=== PATIENT | male | born 1955 | race Caucasian/White ===

== ENCOUNTER 2020-10-06 04:12 | Inpatient (IN) | payer MEDICARE ==
[2020-10-06] MEDS ORDERED: MORPHINE SULFATE 2 MG/ML SYRINGE IVP STA (04:37)
[2020-10-06] MEDS ORDERED: SODIUM CHLORIDE 0.9% 500 ML 500 ML IV STA ×2 (04:37→05:47)
[2020-10-06] MEDS ORDERED: ONDANSETRON 4 MG/2 ML VIAL IVP STA (04:37)
[2020-10-06 05:10] LABS: Basophils # (A) 0.1 k/uL (0-0.2); Basophils % (A) 1 %; Eosinophils # (A) 0.2 k/uL (0-0.7); Eosinophils % (A) 2 %; HCT 38.6 % (39.0-53.0); HGB 12.5 gm/dL (13.0-17.5); Lymphocytes # (A) 1.4 k/uL (1.0-4.8); Lymphocytes % (A) 14 %; MCH 30.9 pg (25.0-35.0); MCHC 32.3 g/dL (31.0-37.0); MCV 95.7 fL (80.0-100.0); Mean Platelet Volume 8.5; Monocytes # (A) 0.6 k/uL (0-1.0); Monocytes % (A) 6 %; Neutrophils # (A) 7.5 k/uL (1.3-7.7); Neutrophils % (A) 76 %; Platelet Count 279 k/uL (150-450); RBC 4.04 m/uL (4.30-5.90); RDW 13.3 % (11.5-15.5); WBC 9.8 k/uL (3.8-10.6)
[2020-10-06 05:17] LABS: Calcium 9.8 mg/dL (8.4-10.2); Total Bilirubin 0.6 mg/dL (0.2-1.3); Total Protein 7.5 g/dL (6.3-8.2)
[2020-10-06] MEDS ORDERED: INSULIN REGULAR 100 UNIT/ML VIAL IV STA (05:47)
[2020-10-06] MEDS ORDERED: ALBUTEROL NEBULIZED 2.5 MG/3 ML INHALATION STA (05:47)
[2020-10-06] MEDS ORDERED: DEXTROSE 50% SYRINGE 50 ML IVP STA ×3 (05:47→19:34)
[2020-10-06] MEDS ORDERED: SODIUM BICARB 8.4% 50 ML SYR (1 MEQ/ML) IV STA (05:47)
[2020-10-06] MEDS ORDERED: CALCIUM GLUCONATE 1 GM in SODIUM CHLORIDE 0.9% 100 ML IVPB ONE (06:00)
[2020-10-06 06:09] LABS: Glucose,Whole Blood 59 mg/dL (75-99)
[2020-10-06] MEDS ORDERED: PROCHLORPERAZINE SUPPOSITORY 25 MG SUPP RECTAL PRN (06:37)
[2020-10-06] MEDS ORDERED: NALOXONE 0.4 MG/ML 1 ML VIAL IV PRN (06:37)
[2020-10-06] MEDS ORDERED: MORPHINE SULFATE 4 MG/ML SYRINGE IV PRN (06:37)
[2020-10-06] MEDS ORDERED: ONDANSETRON 4 MG/2 ML VIAL IVP PRN (06:37)
--- NOTE | 2020-10-06 06:39 | CT ---
EXAM: CT Abdomen and Pelvis Without Intravenous Contrast CLINICAL HISTORY: ITS.REASON CT Reason: abdominal pain TECHNIQUE: Axial computed tomography images of the abdomen and pelvis without intravenous contrast. CTDI is 14.87 mGy and DLP is 887.4 mGy-cm. This CT exam was performed using one or more of the following dose reduction techniques: automated exposure control, adjustment of the mA and/or kV according to patient size, and/or use of iterative reconstruction technique. COMPARISON: No relevant prior studies available. FINDINGS: Lung bases: Unremarkable. No mass. No consolidation. Mediastinum: Small hiatal hernia. Possible fundoplication. ABDOMEN: Liver: Unremarkable. Gallbladder and bile ducts: Cholecystectomy. No ductal dilation. Pancreas: Unremarkable. No ductal dilation. Spleen: Unremarkable. No splenomegaly. Adrenals: Small bilateral subcentimeter adrenal nodules, likely adenomas. Kidneys and ureters: Lobular renal contours bilaterally. Left renal cyst. Nonspecific bilateral perinephric stranding greater on the right. No obstructing stones. Stomach and bowel: Unremarkable. No obstruction. No mucosal thickening. PELVIS: Appendix: Normal appendix. Bladder: Unremarkable. No stones. Reproductive: Unremarkable as visualized. ABDOMEN and PELVIS: Intraperitoneal space: Unremarkable. No free air. No significant fluid collection. Bones/joints: Degenerative changes of the spine and bilateral hips. No acute fracture. No dislocation. Soft tissues: Small fat-containing inguinal hernias. Small soft tissue nodules in the superficial abdominal wall subcutaneous tissues may relate to injections. Vasculature: Unremarkable. No abdominal aortic aneurysm. Lymph nodes: Unremarkable. No enlarged lymph nodes. IMPRESSION: 1. Nonspecific bilateral perinephric stranding greater on the right. No hydronephrosis or obstructing calculus. May relate to medical renal disease or infection. 2. No other findings to suggest acute process.
--- NOTE | 2020-10-06 06:41 | ED ---
Nausea/Vomiting/Diarrhea HPI - General Chief complaint: Nausea/Vomiting/Diarrhea Stated complaint: NVD Time Seen by Provider: 10/06/20 04:25 Source: patient, EMS Mode of arrival: EMS Limitations: altered mental status (Appears delirious) - History of Present Illness Initial comments: This patient is a 65-year-old man who is transferred here from the [facility] to be evaluated for intractable nausea vomiting and diarrhea. The patient is reportedly receiving oral vancomycin for Clostridium difficile colitis. On arrival, the patient is not able to give much history due to what appears to be delirium. He does state that he has been vomiting. He does request something to drink. He is currently denying pain. He is not aware of fever or chills. MD complaint: nausea, vomiting, diarrhea Onset/Timin -: days(s) - Related Data Home Medications Medication Instructions Recorded Confirmed Aspirin 81 mg PO DAILY@0800 10/06/20 10/06/20 Cholecalciferol (Vitamin D3) 125 mcg PO DAILY@0810/06/20 10/06/20 [Vitamin D3 (5000 Iu)] Fenofibrate 54 mg PO DAILY@0800 10/06/20 10/06/20 Firvanq 25mg/Ml Solution 25 mg PO QID@00,06,12,18 10/06/20 10/06/20 Lisinopril [Prinivil] 10 mg PO DAILY@0800 10/06/20 10/06/20 Loperamide [Imodium] 2 mg PO Q6H PRN 10/06/20 10/06/20 Mag Hydrox/Aluminum Hyd/Simeth 10 ml PO Q4H PRN 10/06/20 10/06/20 [Mylanta Maximum Strength Liq] Magnesium Hydroxide [Milk of 2,400 mg PO Q24H PRN 10/06/20 10/06/20 Magnesia] Multivitamins, Thera [Multivitamin 1 tab PO DAILY@0800 10/06/20 10/06/20 (formulary)] Oxybutynin Chloride 5 mg PO BID@0800,1600 10/06/20 10/06/20 Pioglitazone [Actos] 45 mg PO DAILY@0800 10/06/20 10/06/20 S.boulardii/B.coagulans/Fos 942 mg PO BID@0800,1600 10/06/20 10/06/20 [Diff-Stat 471 mg Capsule] metFORMIN HCL [Glucophage] 1,000 mg PO BID@0800,1600 10/06/20 10/06/20 Allergies Allergy/AdvReac Type Severity Reaction Status Date / Time bee venom protein (honey bee) Allergy Swelling Verified 10/06/20 08:31 Review of Systems ROS Statement: Those systems with pertinent positive or pertinent negative responses have been documented in the HPI. ROS Other: All systems not noted in ROS Statement are negative. Limitations: ROS unobtainable due to patients medical condition (Appears delirious) Respiratory: Denies: dyspnea Cardiovascular: Denies: chest pain Gastrointestinal: Reports: nausea, vomiting, diarrhea. Denies: abdominal pain Neurological: Denies: headache Past Medical History Past Medical History: Diabetes Mellitus, Hyperlipidemia, Hypertension, Renal Disease History of Any Multi-Drug Resistant Organisms: C-DIFF Past Surgical History: Orthopedic Surgery Past Psychological History: No Psychological Hx Reported Smoking Status: Never smoker Past Alcohol Use History: None Reported Past Drug Use History: None Reported - Past Family History Father Family Medical History: Unable to Obtain Mother Family Medical History: Unable to Obtain General Exam Limitations: no limitations General appearance: alert, obese Head exam: Present: atraumatic, normocephalic Eye exam: Present: normal appearance. Absent: scleral icterus, conjunctival injection ENT exam: Present: mucous membranes dry Respiratory exam: Present: rhonchi. Absent: respiratory distress, wheezes, rales, stridor Cardiovascular Exam: Present: regular rate, normal rhythm, normal heart sounds. Absent: systolic murmur, diastolic murmur, rubs, gallop GI/Abdominal exam: Present: soft. Absent: distended, tenderness, guarding, rebound, rigid, mass, pulsatile mass Extremities exam: Present: normal inspection, normal capillary refill. Absent: pedal edema, calf tenderness Neurological exam: Present: alert. Absent: oriented X3, motor sensory deficit Skin exam: Present: warm, dry, intact, normal color. Absent: rash Course Vital Signs 10/06/20 10/06/20 10/06/20 04:15 05:25 05:52 Temperature 97.8 F Pulse Rate 84 80 Respiratory 16 16 Rate Blood Pressure 104/94 87/54 98/59 O2 Sat by Pulse 99 98 Oximetry 0210/06/20 10/06/20 06:07 06:17 06:30 Temperature Pulse Rate 83 90 92 Respiratory 16 Rate Blood Pressure 100/43 O2 Sat by Pulse 100 Oximetry Medical Decision Making - Medical Decision Making Patient is 65-year-old man sent from [email or web address] for intractable nausea and vomiting. On the exam he does appear to be somewhat dehydrated. The patient's labs reveal what appears to be acute kidney injury, but there is no baseline creatinine for comparison. Potassium is also elevated. The patient is started with fluids and hyperkalemia treatment. - Lab Data Result diagrams: 10/06/20 04:58 10/08/20 16:04 Lab Results 10/06/20 10/06/20 10/06/20 Range/Units 04:58 04:58 04:58 WBC 9.8 (3.8-10.6) k/uL RBC 4.04 L (4.30-5.90) m/uL Hgb 12.5 L (13.0-17.5) gm/dL Hct 38.6 L (39.0-53.0) % MCV 95.7 (80.0-100.0) fL MCH 30.9 (25.0-35.0) pg MCHC 32.3 (31.0-37.0) g/dL RDW 13.3 (11.5-15.5) % Plt Count 279 (150-450) k/uL MPV 8.5 Neutrophils % 76 % Lymphocytes % 14 % Monocytes % 6 % Eosinophils % 2 % Basophils % 1 % Neutrophils # 7.5 (1.3-7.7) k/uL Lymphocytes # 1.4 (1.0-4.8) k/uL Monocytes # 0.6 (0-1.0) k/uL Eosinophils # 0.2 (0-0.7) k/uL Basophils # 0.1 (0-0.2) k/uL Sodium 135 L (137-145) mmol/L Potassium 7.0 H* (3.5-5.1) mmol/L Chloride 103 (98-107) mmol/L Carbon Dioxide 15 L (22-30) mmol/L Anion Gap 17 mmol/L BUN 94 H (9-20) mg/dL Creatinine 8.04 H* (0.66-1.25) mg/dL Est GFR (CKD-EPI)AfAm 7 (>60 ml/min/1.73 sqM) Est GFR (CKD-EPI)NonAf 6 (>60 ml/min/1.73 sqM) Glucose 71 L (74-99) mg/dL POC Glucose (mg/dL) (75-99) mg/dL POC Glu Charging Board Operator ID Plasma Lactic Acid Morgan 1.4 (0.7-2.0) mmol/L Calcium 9.8 (8.4-10.2) mg/dL Total Bilirubin 0.6 (0.2-1.3) mg/dL AST 32 (17-59) U/L ALT 54 H (4-49) U/L Alkaline Phosphatase 46 (38-126) U/L Total Protein 7.5 (6.3-8.2) g/dL Albumin 4.0 (3.5-5.0) g/dL Amylase 80 (30-110) U/L Lipase 282 (23-300) U/L 10/06/20 Range/Units 06:07 WBC (3.8-10.6) k/uL RBC (4.30-5.90) m/uL Hgb (13.0-17.5) gm/dL Hct (39.0-53.0) % MCV (80.0-100.0) fL MCH (25.0-35.0) pg MCHC (31.0-37.0) g/dL RDW (11.5-15.5) % Plt Count (150-450) k/uL MPV Neutrophils % % Lymphocytes % % Monocytes % % Eosinophils % % Basophils % % Neutrophils # (1.3-7.7) k/uL Lymphocytes # (1.0-4.8) k/uL Monocytes # (0-1.0) k/uL Eosinophils # (0-0.7) k/uL Basophils # (0-0.2) k/uL Sodium (137-145) mmol/L Potassium (3.5-5.1) mmol/L Chloride (98-107) mmol/L Carbon Dioxide (22-30) mmol/L Anion Gap mmol/L BUN (9-20) mg/dL Creatinine (0.66-1.25) mg/dL Est GFR (CKD-EPI)AfAm (>60 ml/min/1.73 sqM) Est GFR (CKD-EPI)NonAf (>60 ml/min/1.73 sqM) Glucose (74-99) mg/dL POC Glucose (mg/dL) 59 L (75-99) mg/dL POC Glu Charging Board Operator Chong Carney Plasma Lactic Acid Morgan (0.7-2.0) mmol/L Calcium (8.4-10.2) mg/dL Total Bilirubin (0.2-1.3) mg/dL AST (17-59) U/L ALT (4-49) U/L Alkaline Phosphatase (38-126) U/L Total Protein (6.3-8.2) g/dL Albumin (3.5-5.0) g/dL Amylase (30-110) U/L Lipase (23-300) U/L - EKG Data -: EKG Interpreted by Me EKG shows normal: sinus rhythm, axis (Normal), intervals (Normal), QRS complexes (Normal), ST-T waves (Normal) Rate: normal (Rate 83 bpm) Critical Care Time Critical Care Time: Yes (30 minutes) Disposition Clinical Impression: Hyperkalemia, Acute kidney failure Disposition: ADMITTED IP TO THIS [facility] Condition: Serious
[2020-10-06] MEDS ORDERED: SODIUM CHLORIDE 0.9% 1,000 ML IV SCH (06:45)
[2020-10-06] MEDS ORDERED: SODIUM CHLORIDE 0.9% 1,000 ML IV ONE (07:01)
[2020-10-06] MEDS: VANCOMYCIN 125 MG CAPSULE PO SCH ×4 (10:29→22:38)
--- NOTE | 2020-10-06 10:42 | CONS ---
CONSULTATION REASON FOR CONSULT: Renal failure, hyperkalemia. HISTORY OF PRESENT ILLNESS: Patient is a 65-year-old male who was admitted to the hospital on 10/06/2020 early this morning. He was a transfer from [facility] due to intractable nausea, vomiting and diarrhea. The patient also had mental status changes. He was quite weak. The patient recently had C difficile colitis and was taking oral vancomycin. He was also recently admitted to [facility] and had acute kidney injury. Details are not available. When patient presented here, his potassium was 7.0 and creatinine was 8.03. Prior labs are not available for comparison. The patient has not had any significant urine output since admission. His parker virus PCR was negative. Review of medications: The patient denies any use of nonsteroidal anti-inflammatory agents. Blood pressure has been on the lower side with systolic in the 90s and 87 as well. The patient is currently maintained on IV fluids. He did receive IV treatment for the hyperkalemia. PAST MEDICAL HISTORY: Hypertension, recent C difficile colitis, recent acute kidney injury during hospitalization at [facility], details not available. Patient denies chronic kidney disease. He has type 2 diabetes, hyperlipidemia, osteoarthritis. PAST SURGICAL HISTORY: Orthopedic surgery, details not known. SOCIAL HISTORY: Negative for smoking, drug abuse or alcohol abuse. MEDICATIONS: Medications prior to admission are not listed on the chart at this point. ALLERGIES: None. EXAMINATION: Patient is awake, comfortable. He is not in any acute distress. Blood pressure was 102/56, heart rate 85 per minute, he is afebrile. Examination of the heart S1, S2. Examination of the lungs, decreased breath sounds at bases. Abdomen is soft, nontender. Examination of lower extremities shows no significant edema. PHOTO CHECKER exam shows patient moving all 4 extremities. He is answering simple questions. LAB: Show sodium 135, potassium 7.0, chloride 103, CO2 is 15, BUN 94, serum creatinine 8.04 hemoglobin 12.5 g/dL. Calcium was 9.8, parker virus PCR negative. Abdominal CT was unremarkable with no evidence of hydronephrosis. ASSESSMENT: 1. Acute kidney injury most likely acute tubular necrosis. No evidence of obstruction. Check bladder scan. Send urine for urinalysis. Repeat stat BMP now. If there is no improvement, patient may need dialysis. We will obtain a list of his medications prior to admission. Continue to avoid all nephrotoxic agents. Continue with IV hydration and avoid hypotension. 2. Metabolic acidosis secondary to renal failure, anion gap. If there is no improvement, patient will be started on a bicarb drip. 3. History of recent C difficile colitis, maintained on oral vancomycin. 4. Rule out chronic kidney disease. 5. Type 2 diabetes. 6. Hypertension. PLAN: Check postvoid scan. Check urinalysis. Repeat BMP now. Start IV bicarb. If no improvement in acidosis, patient may need dialysis if there is no improvement in his renal function and hyperkalemia. I will also try to obtain details regarding his admission and his renal function at [facility] during his recent hospitalization there. Thank you for this consultation. We will continue to follow the patient with you during his hospitalization. LOVE / RAE: [id number] /
[2020-10-06 10:54] LABS: Calcium 9.4 mg/dL (8.4-10.2); Potassium 5.9 mmol/L (3.5-5.1)
[2020-10-06 12:02] LABS: Glucose,Whole Blood 66 mg/dL (75-99)
[2020-10-06] MEDS ORDERED: LOPERAMIDE 2 MG CAP PO PRN (12:20)
[2020-10-06 12:29] LABS: Glucose,Whole Blood 80 mg/dL (75-99)
[2020-10-06] MEDS ORDERED: INSULIN REGULAR 100 UNIT/ML VIAL IV ONE ×2 (12:34→19:34)
[2020-10-06] MEDS: INSULIN ASPART (NovoLOG) 100 UNIT/ML VIAL SQ SCH ×3 (12:39→20:21)
[2020-10-06] MEDS: ASPIRIN 81 MG PO SCH (13:36)
[2020-10-06] MEDS: DEXTROSE 5% IN WATER 1,000 ML with SODIUM BICARB (1 MEQ/ML) 150 ML IV SCH (13:36)
[2020-10-06 16:47] LABS: Glucose,Whole Blood 80 mg/dL (75-99)
[2020-10-06] MEDS: OXYBUTYNIN CHLORIDE 5 MG TAB PO SCH (17:11)
[2020-10-06] MEDS: DEXTROSE 5%-0.45% NACL 1,000 ML IV SCH ×2 (17:12→20:23)
[2020-10-06] MEDS ORDERED: VANCOMYCIN PO SCH (18:00)
[2020-10-06 18:30] LABS: Calcium 9.3 mg/dL (8.4-10.2)
[2020-10-06 18:40] LABS: Potassium 6.1 mmol/L (3.5-5.1)
--- NOTE | 2020-10-06 18:53 | P.HPIM ---
History of Present Illness H&P Date: 10/06/20 Chief Complaint: Tired History of presenting complaint: This is a 65-year-old patient, follows with Dr. cain from [place]. Patient is a poor historian and cannot really collect history. As per the nursing patient was found at home on the floor for about 2 days and was taken to [facility]. He was found to be an acute kidney injury and was then admitted to rehab[facility]. Per the EMS report patient was being treated for C. diff. He started antibiotics 3 days prior. Patient had nausea vomiting for past 3 days not able to eat or drink much during that time. Patient feels rather tired and rundown. Patient collect lites were totally off when he presented and also hypoglycemic. Patient states he been so weak that he has not been able to walk. Patient's sister is DP OA Review of systems: GEN.: Weight tired EYES: None HEENT: None NECK: None RESPIRATORY: None CARDIOVASCULAR: None GASTROINTESTINAL: Was being treated for C. diff. Denies any abdominal pain right now GENITOURINARY: None MUSCULOSKELETAL: Some joint pains LYMPHATICS: None HEMATOLOGICAL: None PSYCHIATRY: Forgetful NEUROLOGICAL: None Past medical history to include: Diabetes, hyperlipidemia, hypertension, spinal stenosis, vitamin D deficiency, incontinence, C. diff positive on October 03 Social history: Currently at rehab [facility], no history of smoking or alcohol. Patient's sister is the DP OA Family history: Reviewed, noncontributory to presentation Physical examination: VITAL SIGNS: 97.8, 80, 16, 87/54, 98% room air GENERAL: BMI 27.7, laying in bed, tired appearing. EYES: Pupils equal. Conjunctiva normal. HEENT: External appearance of nose and ears normal, oral cavity grossly normal. NECK: JVD not raised; masses not palpable. HEART: First and second heart sounds are normal; no edema. LUNGS: Respiratory rate normal; clear to auscultation. ABDOMEN: Soft, nontender, liver spleen not palpable, no masses palpable. PSYCH: A bit lethargic but patient is able to answer simple questionsl. NEUROLOGICAL: Cranial nerves grossly intact; no facial asymmetry, power and sensation grossly intact. MUSCULOSKELETAL: Patient is Court overgrowing toenails LYMPHATICS: No lymph nodes palpable in the axilla and neck INVESTIGATIONS, reviewed in the clinical context: Repeat labs-potassium 6.1 bun 95 creatinine 8.73 Serum osmolality 319 White count 9.8 hemoglobin 12.5 platelets 279 potassium 7 bun 94 creatinine 8.04 Blood glucose 71 Coronavirus [PCF]-not detected EKG tracing personally reviewed by me-normal sinus rhythm Computed tomography scan of the abdomen without contrast-nonspecific bilateral perinephric stranding Assessment and plan: -Acute C. diff colitis that was diagnosed 3 days ago. We will continue patient on vancomycin -Acute severe kidney injury, from volume loss cannot rule out a chronic component. Prerenal. Change IV fluids to D5 0.45 -Severe hyperkalemia from renal failure. Patient has received calcium gluconate, insulin, and sodium bicarbonate drip. -Acute metabolic encephalopathy from renal failure -Diabetes mellitus type 2. Uncontrolled with hypoglycemia from poor oral intake Hold off oral hypoglycemic. Follow Accu-Cheks. -Hypotension from volume loss IV fluids -Essential hypertension currently blood pressure running low, hold off any antihypertensives -Metabolic acidosis from renal failure Patient also put on a renal diet. IV fluids. Follow lites closely. Follow with nephrology. DVT prophylaxis. Past Medical History Past Medical History: Dementia, Diabetes Mellitus, Hyperlipidemia, Hypertension, Renal Disease Additional Past Medical History / Comment(s): Spinal stenosis, Vitamin D deficiency, , Incontinence, Obesity, History of Any Multi-Drug Resistant Organisms: C-DIFF Date of last positivie culture/infection: MDRO Source:: Stool Past Surgical History: Orthopedic Surgery Past Anesthesia/Blood Transfusion Reactions: Unable to Obtain Past Psychological History: No Psychological Hx Reported Smoking Status: Never smoker Past Alcohol Use History: None Reported Past Drug Use History: None Reported - Past Family History Father Family Medical History: Unable to Obtain Mother Family Medical History: Unable to Obtain Medications and Allergies Home Medications Medication Instructions Recorded Confirmed Type Aspirin 81 mg PO DAILY@0800 10/06/20 10/06/20 History Cholecalciferol (Vitamin D3) 125 mcg PO DAILY@0800 10/06/20 10/06/20 History [Vitamin D3 (5000 Iu)] Fenofibrate 54 mg PO DAILY@0800 10/06/20 10/06/20 History Firvanq 25mg/Ml Solution 25 mg PO QID@00,06,12,18 10/06/20 10/06/20 History Lisinopril [Prinivil] 10 mg PO DAILY@0800 10/06/20 10/06/20 History Loperamide [Imodium] 2 mg PO Q6H PRN 10/06/20 10/06/20 History Mag Hydrox/Aluminum Hyd/Simeth 10 ml PO Q4H PRN 10/06/20 10/06/20 History [Mylanta Maximum Strength Liq] Magnesium Hydroxide [Milk of 2,400 mg PO Q24H PRN 10/06/20 10/06/20 History Magnesia] Multivitamins, Thera [Multivitamin 1 tab PO DAILY@0800 10/06/20 10/06/20 History (formulary)] Oxybutynin Chloride 5 mg PO BID@0800,1600 10/06/20 10/06/20 History Pioglitazone [Actos] 45 mg PO DAILY@0800 10/06/20 10/06/20 History S.boulardii/B.coagulans/Fos 942 mg PO BID@0800,1600 10/06/20 10/06/20 History [Diff-Stat 471 mg Capsule] metFORMIN HCL [Glucophage] 1,000 mg PO BID@0800,1600 10/06/20 10/06/20 History Allergies Allergy/AdvReac Type Severity Reaction Status Date / Time bee venom protein (honey bee) Allergy Swelling Verified 10/06/20 08:31 Physical Exam Vitals: Vital Signs Temp Pulse Pulse Resp BP BP Pulse Ox 10/06/20 08:00 98.5 F 85 18 102/56 97 10/06/20 06:30 92 16 100/43 100 10/06/20 06:17 90 10/06/20 06:07 83 10/06/20 05:52 98/59 10/06/20 05:25 80 16 87/54 98 10/06/20 04:15 97.8 F 84 16 104/94 99 Intake and Output 10/05/20 10/06/20 10/06/20 22:59 06:59 14:59 Other: Weight 98.883 kg 92.545 kg Results CBC & Chem 7: 10/06/20 04:58 10/06/20 17:59 Labs: Abnormal Lab Results - Last 24 Hours (Table) 10/06/20 10/06/20 10/06/20 Range/Units 04:58 04:58 06:07 RBC 4.04 L (4.30-5.90) m/uL Hgb 12.5 L (13.0-17.5) gm/dL Hct 38.6 L (39.0-53.0) % Sodium 135 L (137-145) mmol/L Potassium 7.0 H* (3.5-5.1) mmol/L Carbon Dioxide 15 L (22-30) mmol/L BUN 94 H (9-20) mg/dL Creatinine 8.04 H* (0.66-1.25) mg/dL Glucose 71 L (74-99) mg/dL POC Glucose (mg/dL) 59 L (75-99) mg/dL ALT 54 H (4-49) U/L
[2020-10-06 20:17] LABS: Glucose,Whole Blood 104 mg/dL (75-99)
[2020-10-06 20:44] LABS: Appearance,Urine Clear (Clear); Bilirubin,Urine Negative (Negative); Blood,Urine Trace (Negative); Color,Urine Light Yellow; Glucose,Urine (UA) 1+ (Negative); Hyaline Casts,Urine 6 /lpf (0-2); Ketones,Urine Negative (Negative); Leukocyte Esterase,Urine Trace (Negative); Mucus,Urine Rare /hpf; Nitrite,Urine Negative (Negative); Protein,Urine 1+ (Negative); RBC,Urine <1 /hpf (0-5); Specific Gravity,Urine 1.008 (1.001-1.035); Urobilinogen,Urine <2.0 mg/dL (<2.0); WBC,Urine 4 /hpf (0-5)
[2020-10-06 20:48] LABS: Creatinine,Urine Random 51.5 mg/dL
[2020-10-07 02:05] LABS: Glucose,Whole Blood 143 mg/dL (75-99)
[2020-10-07] MEDS: DEXTROSE 5%-0.45% NACL 1,000 ML IV SCH ×4 (03:12→17:24)
[2020-10-07 05:49] LABS: Glucose,Whole Blood 144 mg/dL (75-99)
[2020-10-07] MEDS: INSULIN ASPART (NovoLOG) 100 UNIT/ML VIAL SQ SCH ×4 (06:24→23:22)
[2020-10-07] MEDS: DEXTROSE 5% IN WATER 1,000 ML with SODIUM BICARB (1 MEQ/ML) 150 ML IV SCH (06:40)
[2020-10-07] MEDS ORDERED: PIOGLITAZONE 45 MG TAB PO SCH (08:00)
[2020-10-07 08:48] LABS: INR 1.1 (<1.2); Prothrombin Time 11.7 sec (9.0-12.0)
[2020-10-07 08:49] LABS: Partial Thromboplastin Time 21.3 sec (22.0-30.0)
--- NOTE | 2020-10-07 10:09 | P.GSHP ---
History of Present Illness 65-year-old gentleman patient has been admitted with high potassium of 7 history of acute kidney tape. Patient also had a history of see deficit in the past treated with antibiotic I was consulted for placement of the dialysis catheter Neck examination neck is supple no bruit appreciated Chest is clear first and second sound present good and both lungs Abdomen soft nontender Vascular examination femorals are 1+ bilateral plan is placement of a dialysis catheter risk and complication discussed Past Medical History Past Medical History: Dementia, Diabetes Mellitus, Hyperlipidemia, Hypertension, Renal Disease Additional Past Medical History / Comment(s): Spinal stenosis, Vitamin D deficiency, , Incontinence, Obesity, History of Any Multi-Drug Resistant Organisms: C-DIFF Date of last positivie culture/infection: MDRO Source:: Stool Past Surgical History: Orthopedic Surgery Past Anesthesia/Blood Transfusion Reactions: Unable to Obtain Past Psychological History: No Psychological Hx Reported Smoking Status: Never smoker Past Alcohol Use History: None Reported Past Drug Use History: None Reported - Past Family History Father Family Medical History: Unable to Obtain Mother Family Medical History: Unable to Obtain Medications and Allergies Home Medications Medication Instructions Recorded Confirmed Type Aspirin 81 mg PO DAILY@0800 10/06/20 10/06/20 History Cholecalciferol (Vitamin D3) 125 mcg PO DAILY@0810/06/20 10/06/20 History [Vitamin D3 (5000 Iu)] Fenofibrate 54 mg PO DAILY@0810/06/20 10/06/20 History Firvanq 25mg/Ml Solution 25 mg PO QID@00,06,12,18 10/06/20 10/06/20 History Lisinopril [Prinivil] 10 mg PO DAILY@0810/06/20 10/06/20 History Loperamide [Imodium] 2 mg PO Q6H PRN 10/06/20 10/06/20 History Mag Hydrox/Aluminum Hyd/Simeth 10 ml PO Q4H PRN 10/06/20 10/06/20 History [Mylanta Maximum Strength Liq] Magnesium Hydroxide [Milk of 2,400 mg PO Q24H PRN 10/06/20 10/06/20 History Magnesia] Multivitamins, Thera [Multivitamin 1 tab PO DAILY@0800 10/06/20 10/06/20 History (formulary)] Oxybutynin Chloride 5 mg PO BID@0800,1600 10/06/20 10/06/20 History Pioglitazone [Actos] 45 mg PO DAILY@0800 10/06/20 10/06/20 History S.boulardii/B.coagulans/Fos 942 mg PO BID@0800,1600 10/06/20 10/06/20 History [Diff-Stat 471 mg Capsule] metFORMIN HCL [Glucophage] 1,000 mg PO BID@0800,1600 10/06/20 10/06/20 History Allergies Allergy/AdvReac Type Severity Reaction Status Date / Time bee venom protein (honey bee) Allergy Swelling Verified 10/06/20 08:31 Surgical - Exam Vital Signs Temp Pulse Resp BP Pulse Ox 97.8 F 84 16 104/94 99 10/06/20 04:15 10/06/20 04:15 10/06/20 04:15 10/06/20 04:15 10/06/20 04:15 Results - Labs 10/06/20 04:58 10/07/20 02:28 Abnormal Lab Results - Last 24 Hours (Table) 10/06/20 10/06/20 10/06/20 Range/Units 09:47 09:47 12:01 APTT (22.0-30.0) sec Sodium 135 L (137-145) mmol/L Potassium 5.9 H (3.5-5.1) mmol/L Carbon Dioxide 19 L (22-30) mmol/L BUN 94 H (9-20) mg/dL Creatinine 8.16 H* (0.66-1.25) mg/dL Glucose (74-99) mg/dL POC Glucose (mg/dL) 66 L (75-99) mg/dL Osmolality 319 H (280-301) mosm/kg Urine Protein (Negative) Urine Glucose (UA) (Negative) Urine Blood (Negative) Ur Leukocyte Esterase (Negative) Hyaline Casts (0-2) /lpf Urine Mucus (None) /hpf 10/06/20 10/06/20 10/06/20 Range/Units 17:59 20:15 20:19 APTT (22.0-30.0) sec Sodium 136 L (137-145) mmol/L Potassium 6.1 H* (3.5-5.1) mmol/L Carbon Dioxide 21 L (22-30) mmol/L BUN 95 H (9-20) mg/dL Creatinine 8.73 H* (0.66-1.25) mg/dL Glucose 102 H (74-99) mg/dL POC Glucose (mg/dL) 104 H (75-99) mg/dL Osmolality (280-301) mosm/kg Urine Protein 1+ H (Negative) Urine Glucose (UA) 1+ H (Negative) Urine Blood Trace H (Negative) Ur Leukocyte Esterase Trace H (Negative) Hyaline Casts 6 H (0-2) /lpf Urine Mucus Rare H (None) /hpf 10/07/20 10/07/20 10/07/20 Range/Units 02:03 02:28 05:48 APTT (22.0-30.0) sec Sodium (137-145) mmol/L Potassium 5.2 H (3.5-5.1) mmol/L Carbon Dioxide (22-30) mmol/L BUN (9-20) mg/dL Creatinine (0.66-1.25) mg/dL Glucose (74-99) mg/dL POC Glucose (mg/dL) 143 H 144 H (75-99) mg/dL Osmolality (280-301) mosm/kg Urine Protein (Negative) Urine Glucose (UA) (Negative) Urine Blood (Negative) Ur Leukocyte Esterase (Negative) Hyaline Casts (0-2) /lpf Urine Mucus (None) /hpf 10/07/20 Range/Units 08:01 APTT 21.3 L (22.0-30.0) sec Sodium (137-145) mmol/L Potassium (3.5-5.1) mmol/L Carbon Dioxide (22-30) mmol/L BUN (9-20) mg/dL Creatinine (0.66-1.25) mg/dL Glucose (74-99) mg/dL POC Glucose (mg/dL) (75-99) mg/dL Osmolality (280-301) mosm/kg Urine Protein (Negative) Urine Glucose (UA) (Negative) Urine Blood (Negative) Ur Leukocyte Esterase (Negative) Hyaline Casts (0-2) /lpf Urine Mucus (None) /hpf Diabetes panel 10/06/20 10/06/20 10/07/20 Range/Units 09:47 17:59 02:28 Sodium 135 L 136 L (137-145) mmol/L Potassium 5.9 H 6.1 H* 5.2 H (3.5-5.1) mmol/L Chloride 106 104 (98-107) mmol/L Carbon Dioxide 19 L 21 L (22-30) mmol/L BUN 94 H 95 H (9-20) mg/dL Creatinine 8.16 H* 8.73 H* (0.66-1.25) mg/dL Glucose 86 102 H (74-99) mg/dL Calcium 9.4 9.3 (8.4-10.2) mg/dL Calcium panel 10/06/20 10/06/20 Range/Units 09:47 17:59 Calcium 9.4 9.3 (8.4-10.2) mg/dL Pituitary panel 10/06/20 10/06/20 10/07/20 Range/Units 09:47 17:59 02:28 Sodium 135 L 136 L (137-145) mmol/L Potassium 5.9 H 6.1 H* 5.2 H (3.5-5.1) mmol/L Chloride 106 104 (98-107) mmol/L Carbon Dioxide 19 L 21 L (22-30) mmol/L BUN 94 H 95 H (9-20) mg/dL Creatinine 8.16 H* 8.73 H* (0.66-1.25) mg/dL Glucose 86 102 H (74-99) mg/dL Calcium 9.4 9.3 (8.4-10.2) mg/dL Adrenal panel 10/06/20 10/06/20 10/07/20 Range/Units 09:47 17:59 02:28 Sodium 135 L 136 L (137-145) mmol/L Potassium 5.9 H 6.1 H* 5.2 H (3.5-5.1) mmol/L Chloride 106 104 (98-107) mmol/L Carbon Dioxide 19 L 21 L (22-30) mmol/L BUN 94 H 95 H (9-20) mg/dL Creatinine 8.16 H* 8.73 H* (0.66-1.25) mg/dL Glucose 86 102 H (74-99) mg/dL Calcium 9.4 9.3 (8.4-10.2) mg/dL
[2020-10-07] MEDS ORDERED: MIDAZOLAM 2 MG/2 ML VIAL IVP ONE (10:26)
[2020-10-07] MEDS ORDERED: fentaNYL (PF) 50 MCG/ML 2 ML AMP IVP ONE (10:26)
[2020-10-07] MEDS ORDERED: LIDOCAINE 1% INJ 10MG/ML (20 ML MDV) SQ ONE ×3 (10:28→10:34)
[2020-10-07] MEDS ORDERED: IV FLUID CONTINUATION 1,000 ML IV ONE (10:29)
--- NOTE | 2020-10-07 10:54 | P.PCN ---
Description of Procedure: Preoperative diagnoses is acute chronic renal failure Postoperative same Procedure patient brought to the [facility] of the neck and chest was prepped and draped applied in standard manner. Ultrasound-guided micropuncture and right jugular vein under local IV sedation after that 4. dilator advanced top the guidewire then we passed a regular guidewire which was parked at the inferior vena cava. A tendon was created through the terminal be brought 23 same callus catheter the neck incision site dilator advanced. The guidewire then we advanced a she's on the top of guidewire. Through the sheath we did dialysis catheter tip of catheter Vena cava and atrium junction flush with heparin saline and Hep-Lock and secured with 3-0 nylon dressing applied patient are to the procedure well Procedure is ultrasound-guided dialysis catheter placement right jugular approach sedation time was 17 minutes
[2020-10-07 11:49] LABS: Glucose,Whole Blood 162 mg/dL (75-99)
[2020-10-07] MEDS: CHOLECALCIFEROL 25 MCG (1000 IU) TABLET PO SCH (11:50)
[2020-10-07] MEDS: FENOFIBRATE 54 MG TAB PO SCH (11:51)
[2020-10-07] MEDS: VANCOMYCIN 125 MG CAPSULE PO SCH ×4 (11:51→23:22)
[2020-10-07] MEDS: MULTIVITAMINS, THERA 1 EACH TAB PO SCH (11:51)
[2020-10-07] MEDS: ASPIRIN 81 MG PO SCH (11:51)
[2020-10-07] MEDS: OXYBUTYNIN CHLORIDE 5 MG TAB PO SCH ×2 (11:51→17:25)
--- NOTE | 2020-10-07 12:27 | XR ---
EXAMINATION TYPE: XR chest 1V confirm line [facility] DATE OF EXAM: 10/07/2020 HISTORY: Shortness of breath. COMPARISON: None. TECHNIQUE: Single view of the chest is submitted. FINDINGS: Demonstrated are scattered senescent parenchymal change. Right IJ central venous line with distal ti p overlying the SVC. No evidence for pneumothorax. There is no evidence for focal infiltrate. The heart is stable. Hilar and mediastinal structures are within normal limits. Degenerative changes are seen of the dorsal spine. IMPRESSION: 1. Chronic changes without evidence for acute pulmonary disease.
[2020-10-07 12:34] LABS: Calcium 8.9 mg/dL (8.4-10.2); Potassium 5.3 mmol/L (3.5-5.1)
--- NOTE | 2020-10-07 13:27 | PN ---
PROGRESS NOTE The patient is seen for followup for acute kidney injury. He was admitted to the hospital with mental status changes, significant hyperkalemia with potassium of 7 and acute kidney injury with serum creatinine of around 8. No previous labs are available at this time. Patient has not had significant urine output. He does have an indwelling Lira catheter. He had about 450 mL of urine for 24 hours. Serum potassium remains elevated. Labs from this morning are pending. It has been decided to proceed with dialysis in view of persistent hyperkalemia and significant advanced renal failure. The patient is scheduled for dialysis catheter placement today. I did discuss with his guardian who is his sister regarding the need for starting dialysis and she is agreeable. PHYSICAL EXAMINATION: On examination today, patient is awake, comfortable, he is not in any acute distress. Blood pressure is 108/64, heart rate 72 per minute, he is afebrile. Examination of the heart S1, S2. Examination of the lungs, decreased breath sounds at bases. Abdomen is soft, nontender. Examination of lower extremities shows no significant edema. COMPOUNDING TECHNICIAN exam shows patient is confused but he is moving all four extremities. LAB: Show potassium 5.2 from today. Other labs are pending. Serum creatinine was 8.7 last night. ASSESSMENT: 1. Acute kidney injury, most likely acute tubular necrosis, nonoliguric; however, urine output is on the lower side. Currently with severe persistent hyperkalemia with no improvement in renal function. We will proceed with renal replacement therapy. The patient's sister and the patient are agreeable. We will plan for first treatment today. If his potassium is better we could wait and plan on dialysis tomorrow. 2. Metabolic acidosis associated with renal failure, mostly anion gap. 3. History of C difficile colitis, maintained on oral vancomycin. 4. Possible underlying chronic kidney disease, baseline creatinine not known. 5. Type 2 diabetes. 6. Hypertension. PLAN: Check labs today. Continue with the bicarb drip. We will plan on hemodialysis today if he is safe he is hyperkalemic. Otherwise, we will wait for tomorrow. MMANETA / RAE: [id number] /
--- NOTE | 2020-10-07 14:01 | P.PN ---
Progress Note - Text Progress Note Date: 10/07/20 Chief Complaint: Tired History of presenting complaint: This is a 65-year-old patient, follows with Dr. cain from [place]. Patient is a poor historian and cannot really collect history. As per the nursing patient was found at home on the floor for about 2 days and was taken to [facility]. He was found to be an acute kidney injury and was then admitted to rehab. Currently at [facility]. Per the EMS report patient was being treated for C. diff. He started antibiotics 3 days prior. Patient had nausea vomiting for past 3 days not able to eat or drink much during that time. Patient feels rather tired and rundown. Electrolytes were totally off when he presented and also hypoglycemic. Patient states he been so weak that he has not been able to walk. Patient's sister is DP OA Admitted with severe renal failure, acute C. diff colitis, hypoglycemia. Started on IV fluids. Oral vancomycin. Today-laying in bed. Tired. Not eating much. No improvement in renal function. Dialysis catheter was placed by Dr. Wyman earlier today. Pending dialysis Review of systems: Was done for constitutional, cardiovascular, GI, pulmonary. relevant finding as above Active Medications Acetaminophen (Acetaminophen Tab 325 Mg Tab) 650 mg PO Q6HR PRN PRN Reason: Mild Pain or Fever > 100.5 Aspirin (Aspirin 81 Mg) 81 mg PO DAILY@0800 [facility] Last Admin: 10/07/20 11:51 Dose: 81 mg Documented by: Cholecalciferol (Cholecalciferol 25 Mcg (1000 Iu) Tablet) 125 mcg PO DAILY@0800 [facility] Last Admin: 10/07/20 11:50 Dose: 125 mcg Documented by: Fenofibrate (Fenofibrate 54 Mg Tab) 54 mg PO DAILY@0800 [facility] Last Admin: 10/07/20 11:51 Dose: 54 mg Documented by: Dextrose/Sodium Chloride (Dextrose 5%-1/2ns Iv Soln) 1,000 mls @ 150 mls/hr IV .[id number] [facility] Last Admin: 10/07/20 11:52 Dose: Not Given Documented by: Sodium Bicarbonate 150 ml/ (Dextrose/Water) 1,150 mls @ 75 mls/hr IV .[id number] [facility] Last Admin: 10/07/20 06:40 Dose: 75 mls/hr Documented by: Insulin Aspart (Insulin Aspart (Novolog) 100 Unit/Ml Vial) 0 unit SQ ACHS [facility]; Protocol Last Admin: 10/07/20 11:54 Dose: 1 unit Documented by: Morphine Sulfate (Morphine Sulfate 4 Mg/Ml Syringe) 4 mg IV Q4HR PRN PRN Reason: Severe Pain Multivitamins (Multivitamins, Thera 1 Each Tab) 1 each PO DAILY@0800 [facility] Last Admin: 10/07/20 11:51 Dose: 1 each Documented by: Naloxone HCl (Naloxone 0.4 Mg/Ml 1 Ml Vial) 0.2 mg IV Q2M PRN PRN Reason: Opioid Reversal Ondansetron HCl (Ondansetron 4 Mg/2 Ml Vial) 4 mg IVP Q8HR PRN PRN Reason: Nausea And Vomiting Oxybutynin Chloride (Oxybutynin Chloride 5 Mg Tab) 5 mg PO BID@0800,1600 [facility] Last Admin: 10/07/20 11:51 Dose: 5 mg Documented by: Prochlorperazine Maleate (Prochlorperazine Suppository 25 Mg Supp) 25 mg RECTAL Q12HR PRN PRN Reason: Nausea And Vomiting Vancomycin HCl (Vancomycin 125 Mg Capsule) 125 mg PO QID [facility] Last Admin: 10/07/20 12:41 Dose: Not Given Documented by: Past medical history to include: Diabetes, hyperlipidemia, hypertension, spinal stenosis, vitamin D deficiency, incontinence, C. diff positive on October 03 Social history: Currently at [facility], no history of smoking or alcohol. Patient's sister is the DP OA Family history: Reviewed, noncontributory to presentation Physical examination: VITAL SIGNS: 97.9, 14, 102/65, 99% room air GENERAL: BMI 27.7, laying in bed, tired EYES: Pupils equal. Conjunctiva normal. HEENT: External appearance of nose and ears normal, oral cavity grossly normal. NECK: JVD not raised; masses not palpable. HEART: First and second heart sounds are normal; no edema. LUNGS: Respiratory rate normal; clear to auscultation. CHEST wall: Right infraclavicular dialysis catheter ABDOMEN: Soft, nontender, liver spleen not palpable, no masses palpable. PSYCH: A bit lethargic but patient is able to answer simple questionsl. MUSCULOSKELETAL: Evidence of OA, overgrowing toenails INVESTIGATIONS, reviewed in the clinical context: October 07: Potassium 5.3 bun 91 creatinine 8.88 Repeat labs-potassium 6.1 bun 95 creatinine 8.73 Serum osmolality 319 White count 9.8 hemoglobin 12.5 platelets 279 potassium 7 bun 94 creatinine 8.04 Blood glucose 71 Coronavirus [PCF]-not detected EKG tracing personally reviewed by me-normal sinus rhythm Computed tomography scan of the abdomen without contrast-nonspecific bilateral perinephric stranding Assessment and plan: -Acute C. diff colitis that was diagnosed 3 days before presentation.. continue patient on vancomycin -Acute severe kidney injury, from volume loss cannot rule out a chronic component. Did not respond to IV fluids. 4 hemodialysis. -Severe hyperkalemia from renal failure. Patient has received calcium gluconate, insulin, and sodium bicarbonate drip. Slowly coming down-slow to respond -Acute metabolic encephalopathy from renal failure-slow to respond -Diabetes mellitus type 2. Uncontrolled with hypoglycemia from poor oral intake Hold off oral hypoglycemic. Follow Accu-Cheks. On D5.45 -Hypotension from volume loss IV fluids -Essential hypertension currently blood pressure running low, hold off any antihypertensives -Metabolic acidosis from renal failure -Medical debility-slow to respond, PTOT Continue with D5 0.45. Hemodialysis catheter placed today. Pending hemodialysis. I called the patient's sister who is the KEVIN Iraheta and give her a patient's update.
[2020-10-07 16:46] LABS: Glucose,Whole Blood 204 mg/dL (75-99)
[2020-10-07] MEDS: ACETAMINOPHEN TAB 325 MG TAB PO PRN (17:29)
[2020-10-07 21:02] LABS: Glucose,Whole Blood 155 mg/dL (75-99)
[2020-10-08 06:06] LABS: Glucose,Whole Blood 126 mg/dL (75-99)
[2020-10-08] MEDS: DEXTROSE 5% IN WATER 1,000 ML with SODIUM BICARB (1 MEQ/ML) 150 ML IV SCH ×2 (06:41→17:40)
[2020-10-08] MEDS: INSULIN ASPART (NovoLOG) 100 UNIT/ML VIAL SQ SCH ×4 (06:59→21:23)
[2020-10-08] MEDS: VANCOMYCIN 125 MG CAPSULE PO SCH ×4 (08:26→23:35)
--- NOTE | 2020-10-08 08:54 | IR ---
Fluoroscopy HISTORY: Dialysis catheter placement 1 minute 30 seconds fluoroscopy time supplied to the referring clinician. 113 intraoperative C-arm i mages document the procedure. See dictated report from vascular surgery.
[2020-10-08] MEDS: OXYBUTYNIN CHLORIDE 5 MG TAB PO SCH ×2 (09:33→17:40)
[2020-10-08 11:42] LABS: Glucose,Whole Blood 148 mg/dL (75-99)
[2020-10-08 13:01] LABS: Hepatitis B Surface AB- Quant 3.5 mIU/mL; Hepatitis B Surface Antibody Non-Reactive (Non-Reactive); Hepatitis B Surface Antigen Non-Reactive (Non-Reactive)
--- NOTE | 2020-10-08 14:26 | PN ---
PROGRESS NOTE Patient is seen for followup for acute kidney injury. The patient's renal function remains fairly impaired with serum creatinine staying at about 8. His potassium has improved to about 5.2-5.3 from 7 on admission. The patient continues to have fair amount of urine output. He currently has an indwelling catheter. 24 hour output was about 3 L. There are no labs from today. Patient is status post insertion of IJ PermCath yesterday and he is scheduled for hemodialysis today. PHYSICAL EXAMINATION: Blood pressure this morning 120/66, heart rate 76 per minute. He is afebrile. Examination of the heart S1, S2. Examination of the lungs, bilateral breath sounds are heard. Abdomen is soft, nontender. Examination of lower extremities shows trace edema bilaterally. MANAGER POOL exam is grossly intact. Patient is moving all 4 extremities. LABS: Not available from today. Yesterday serum creatinine was 8.8, potassium 5.3, sodium 133. ASSESSMENT: 1. Acute kidney injury mostly acute tubular necrosis with no improvement in renal function. The patient is maintained on IV fluids. He will be dialyzed today. We will obtain labs today and tomorrow. In the meantime, I will discontinue the IV bicarb and continue with the D5 0.45. 2. Recent C difficile colitis, maintained on oral vancomycin. 3. Hyperkalemia on admission associated with advanced renal failure, now improved. 4. Metabolic acidosis associated with renal failure, maintained on IV bicarb. 5. Possible underlying chronic kidney disease. Previous creatinine not known. PLAN: Hemodialysis today. Check labs today and then again in a.m. MMODL / IJN: [id number] /
[2020-10-08 16:30] LABS: Calcium 8.7 mg/dL (8.4-10.2); Potassium 4.2 mmol/L (3.5-5.1)
[2020-10-08 16:37] LABS: Glucose,Whole Blood 143 mg/dL (75-99)
[2020-10-08] MEDS: DEXTROSE 5%-0.45% NACL 1,000 ML IV SCH ×3 (17:38→20:19)
[2020-10-08] MEDS: CHOLECALCIFEROL 25 MCG (1000 IU) TABLET PO SCH (17:40)
[2020-10-08] MEDS: FENOFIBRATE 54 MG TAB PO SCH (17:40)
[2020-10-08] MEDS: ASPIRIN 81 MG PO SCH (17:40)
[2020-10-08] MEDS: MULTIVITAMINS, THERA 1 EACH TAB PO SCH (17:40)
--- NOTE | 2020-10-08 20:19 | P.PN ---
Progress Note - Text Progress Note Date: 10/08/20 Chief Complaint: Tired History of presenting complaint: This is a 65-year-old patient, follows with Dr. cain from [place]. Patient is a poor historian and cannot really collect history. As per the nursing patient was found at home on the floor for about 2 days and was taken to [facility]. He was found to be an acute kidney injury and was then admitted to rehab. Currently at [facility]. Per the EMS report patient was being treated for C. diff. He started antibiotics 3 days prior. Patient had nausea vomiting for past 3 days not able to eat or drink much during that time. Patient feels rather tired and rundown. Electrolytes were totally off when he presented and also hypoglycemic. Patient states he been so weak that he has not been able to walk. Patient's sister is DP OA Admitted with severe renal failure, acute C. diff colitis, hypoglycemia. Started on IV fluids. Oral vancomycin. Today-patient undergoing dialysis today. No fluid could be removed. Only ultrafiltration. Patient is more productive today. Eating 25 % of his breakfast. Patient is making a fair amount of urine Review of systems: Was done for constitutional, cardiovascular, GI, pulmonary. relevant finding as above Active Medications Acetaminophen (Acetaminophen Tab 325 Mg Tab) 650 mg PO Q6HR PRN PRN Reason: Mild Pain or Fever > 100.5 Last Admin: 10/07/20 17:29 Dose: 650 mg Documented by: Aspirin (Aspirin 81 Mg) 81 mg PO DAILY@0800 [facility] Last Admin: 10/08/20 17:40 Dose: 81 mg Documented by: Cholecalciferol (Cholecalciferol 25 Mcg (1000 Iu) Tablet) 125 mcg PO DAILY@0800 [facility] Last Admin: 10/08/20 17:40 Dose: 125 mcg Documented by: Fenofibrate (Fenofibrate 54 Mg Tab) 54 mg PO DAILY@0800 [facility] Last Admin: 10/08/20 17:40 Dose: 54 mg Documented by: Dextrose/Sodium Chloride (Dextrose 5%-1/2ns Iv Soln) 1,000 mls @ 70 mls/hr IV .[id number] [facility] Last Admin: 10/08/20 17:39 Dose: Not Given Documented by: Insulin Aspart (Insulin Aspart (Novolog) 100 Unit/Ml Vial) 0 unit SQ [facility]; Protocol Last Admin: 10/08/20 17:41 Dose: 1 unit Documented by: Morphine Sulfate (Morphine Sulfate 4 Mg/Ml Syringe) 4 mg IV Q4HR PRN PRN Reason: Severe Pain Multivitamins (Multivitamins, Thera 1 Each Tab) 1 each PO DAILY@0800 [facility] Last Admin: 10/08/20 17:40 Dose: 1 each Documented by: Naloxone HCl (Naloxone 0.4 Mg/Ml 1 Ml Vial) 0.2 mg IV Q2M PRN PRN Reason: Opioid Reversal Ondansetron HCl (Ondansetron 4 Mg/2 Ml Vial) 4 mg IVP Q8HR PRN PRN Reason: Nausea And Vomiting Oxybutynin Chloride (Oxybutynin Chloride 5 Mg Tab) 5 mg PO BID@0800,1600 [facility] Last Admin: 10/08/20 17:40 Dose: 5 mg Documented by: Prochlorperazine Maleate (Prochlorperazine Suppository 25 Mg Supp) 25 mg RECTAL Q12HR PRN PRN Reason: Nausea And Vomiting Vancomycin HCl (Vancomycin 125 Mg Capsule) 125 mg PO QID [facility] Last Admin: 10/08/20 17:40 Dose: 125 mg Documented by: Past medical history to include: Diabetes, hyperlipidemia, hypertension, spinal stenosis, vitamin D deficiency, incontinence, C. diff positive on October 03 Social history: Currently at [facility], no history of smoking or alcohol. Patient's sister is the DP OA Family history: Reviewed, noncontributory to presentation Physical examination: VITAL SIGNS: 97, 70, 20, 118/66, 98% room air GENERAL: Laying in bed, but more awake today EYES: Pupils equal. Conjunctiva normal. HEENT: External appearance of nose and ears normal, oral cavity grossly normal. NECK: JVD not raised; masses not palpable. HEART: First and second heart sounds are normal; no edema. LUNGS: Respiratory rate normal; clear to auscultation. CHEST wall: Right infraclavicular dialysis catheter ABDOMEN: Soft, nontender, liver spleen not palpable, no masses palpable. PSYCH: Answering questions more appropriately today more awake. MUSCULOSKELETAL: Evidence of OA, overgrowing toenails INVESTIGATIONS, reviewed in the clinical context: October 08: Potassium 4.2 creatinine 4.74 October 07: Potassium 5.3 bun 91 creatinine 8.88 Repeat labs-potassium 6.1 bun 95 creatinine 8.73 Serum osmolality 319 White count 9.8 hemoglobin 12.5 platelets 279 potassium 7 bun 94 creatinine 8.04 Blood glucose 71 Coronavirus [PCF]-not detected EKG tracing personally reviewed by me-normal sinus rhythm Computed tomography scan of the abdomen without contrast-nonspecific bilateral perinephric stranding Assessment and plan: -Acute C. diff colitis that was diagnosed 3 days before presentation.. Oral vancomycin -Acute severe kidney injury, from volume loss cannot rule out a chronic component. Did not respond to IV fluids. Started on hemodialysis. Making good urine. -Severe hyperkalemia from renal failure. Patient has received calcium gluconate, insulin, and sodium bicarbonate drip. Improved -Acute metabolic encephalopathy from renal slowly improving -Diabetes mellitus type 2. Uncontrolled with hypoglycemia from poor oral intake Hold off oral hypoglycemic. Follow Accu-Cheks. On D5.45 -Hypotension from volume loss IV fluids -Essential hypertension currently blood pressure running low, hold off any antihypertensives -Metabolic acidosis from renal failure -Medical debility-slow to respond, PTOT Patient still not eating much. Continue with D5 0.45. Follow with nephrology.
[2020-10-08 20:34] LABS: Glucose,Whole Blood 160 mg/dL (75-99)
[2020-10-08] MEDS: ENOXAPARIN 40 MG/0.4 ML SYRINGE SQ SCH (21:23)
[2020-10-08] MEDS: ACETAMINOPHEN TAB 325 MG TAB PO PRN (23:35)
[2020-10-09 06:32] LABS: Glucose,Whole Blood 197 mg/dL (75-99)
[2020-10-09] MEDS: ACETAMINOPHEN TAB 325 MG TAB PO PRN ×2 (06:34→16:40)
[2020-10-09] MEDS: INSULIN ASPART (NovoLOG) 100 UNIT/ML VIAL SQ SCH ×4 (06:34→20:39)
[2020-10-09] MEDS: DEXTROSE 5%-0.45% NACL 1,000 ML IV SCH (06:37)
[2020-10-09] MEDS: MULTIVITAMINS, THERA 1 EACH TAB PO SCH (09:41)
[2020-10-09] MEDS: VANCOMYCIN 125 MG CAPSULE PO SCH ×4 (09:41→20:39)
[2020-10-09] MEDS: ENOXAPARIN 40 MG/0.4 ML SYRINGE SQ SCH (09:41)
[2020-10-09] MEDS: FENOFIBRATE 54 MG TAB PO SCH (09:41)
[2020-10-09] MEDS: CHOLECALCIFEROL 25 MCG (1000 IU) TABLET PO SCH (09:41)
[2020-10-09] MEDS: ASPIRIN 81 MG PO SCH (09:41)
[2020-10-09] MEDS: OXYBUTYNIN CHLORIDE 5 MG TAB PO SCH ×2 (09:41→16:40)
[2020-10-09 12:29] LABS: Glucose,Whole Blood 117 mg/dL (75-99)
[2020-10-09 14:02] LABS: Hemoglobin A1C 6.5 % (4.0-6.0)
--- NOTE | 2020-10-09 14:03 | PN ---
PROGRESS NOTE Patient is seen for followup for acute kidney injury. The patient had dialysis yesterday and he is scheduled for dialysis again today. He has had good urine output with 24-hour urine output documented at about 2.2 L. We did not remove any fluid with dialysis. The patient states he is feeling much better and has had increased intake. PHYSICAL EXAMINATION: On examination today, blood pressure is 107/57, heart rate 78 per minute. Patient is afebrile. EXAMINATION OF THE HEART: S1, S2. EXAMINATION OF LUNGS: Bilateral breath sounds are heard. Abdomen is soft, nontender. Examination of lower extremities shows no significant edema. INFRASTRUCTURE ANALYST exam grossly intact. LABS: Labs are not available from today. ASSESSMENT: 1. Acute kidney injury most likely acute tubular necrosis, currently nonoliguric, status post dialysis yesterday and is scheduled for dialysis again today. 2. Hyperkalemia on admission secondary to acute advanced renal failure, now improved. 3. Recent Clostridium difficile colitis, maintained on oral vancomycin. 4. Metabolic acidosis associated with renal failure, currently maintained on bicarb, which we will discontinue. PLAN: Encourage increased oral intake. Discontinue IV fluids and repeat labs in a.m. MMODL / IJN: [id number] /
[2020-10-09 16:34] LABS: Glucose,Whole Blood 152 mg/dL (75-99)
--- NOTE | 2020-10-09 19:00 | P.PN ---
Progress Note - Text Progress Note Date: 10/09/20 Chief Complaint: Tired History of presenting complaint: This is a 65-year-old patient, follows with Dr. cain from [place]. Patient is a poor historian and cannot really collect history. As per the nursing patient was found at home on the floor for about 2 days and was taken to [facility]. He was found to be an acute kidney injury and was then admitted to rehab. Currently at [facility]. Per the EMS report patient was being treated for C. diff. He started antibiotics 3 days prior. Patient had nausea vomiting for past 3 days not able to eat or drink much during that time. Patient feels rather tired and rundown. Electrolytes were totally off when he presented and also hypoglycemic. Patient states he been so weak that he has not been able to walk. Patient's sister is DP OA Admitted with severe renal failure, acute C. diff colitis, hypoglycemia. Started on IV fluids. Oral vancomycin. Today-getting hemodialysis today. Had 100% of his lunch. Feels better. More communicative. Good urine output Review of systems: Was done for constitutional, cardiovascular, GI, pulmonary. relevant finding as above Active Medications Acetaminophen (Acetaminophen Tab 325 Mg Tab) 650 mg PO Q6HR PRN PRN Reason: Mild Pain or Fever > 100.5 Last Admin: 10/09/20 16:40 Dose: 650 mg Documented by: Aspirin (Aspirin 81 Mg) 81 mg PO DAILY@0800 [facility] Last Admin: 10/09/20 09:41 Dose: 81 mg Documented by: Cholecalciferol (Cholecalciferol 25 Mcg (1000 Iu) Tablet) 125 mcg PO DAILY@0800 [facility] Last Admin: 10/09/20 09:41 Dose: 125 mcg Documented by: Enoxaparin Sodium (Enoxaparin 30 Mg/0.3 Ml Syringe) 30 mg SQ DAILY [facility] Fenofibrate (Fenofibrate 54 Mg Tab) 54 mg PO DAILY@0800 [facility] Last Admin: 10/09/20 09:41 Dose: 54 mg Documented by: Insulin Aspart (Insulin Aspart (Novolog) 100 Unit/Ml Vial) 0 unit SQ [facility]; Protocol Last Admin: 10/09/20 17:53 Dose: 1 unit Documented by: Morphine Sulfate (Morphine Sulfate 4 Mg/Ml Syringe) 4 mg IV Q4HR PRN PRN Reason: Severe Pain Multivitamins (Multivitamins, Thera 1 Each Tab) 1 each PO DAILY@0800 [facility] Last Admin: 10/09/20 09:41 Dose: 1 each Documented by: Naloxone HCl (Naloxone 0.4 Mg/Ml 1 Ml Vial) 0.2 mg IV Q2M PRN PRN Reason: Opioid Reversal Ondansetron HCl (Ondansetron 4 Mg/2 Ml Vial) 4 mg IVP Q8HR PRN PRN Reason: Nausea And Vomiting Oxybutynin Chloride (Oxybutynin Chloride 5 Mg Tab) 5 mg PO BID@0800,1600 [facility] Last Admin: 10/09/20 16:40 Dose: 5 mg Documented by: Prochlorperazine Maleate (Prochlorperazine Suppository 25 Mg Supp) 25 mg RECTAL Q12HR PRN PRN Reason: Nausea And Vomiting Vancomycin HCl (Vancomycin 125 Mg Capsule) 125 mg PO QID [facility] Last Admin: 10/09/20 16:40 Dose: 125 mg Documented by: Past medical history to include: Diabetes, hyperlipidemia, hypertension, spinal stenosis, vitamin D deficiency, incontinence, C. diff positive on October 03 Social history: Currently at [facility], no history of smoking or alcohol. Patient's sister is the DP OA Family history: Reviewed, noncontributory to presentation Physical examination: VITAL SIGNS: 97, 70, 16, 123/72, 97% room air GENERAL: Laying in bed, awake EYES: Pupils equal. Conjunctiva normal. HEENT: External appearance of nose and ears normal, oral cavity grossly normal. NECK: JVD not raised; masses not palpable. HEART: First and second heart sounds are normal; no edema. LUNGS: Respiratory rate normal; clear to auscultation. CHEST wall: Right infraclavicular dialysis catheter ABDOMEN: Soft, nontender, liver spleen not palpable, no masses palpable. PSYCH: More awake and alert and answering questions MUSCULOSKELETAL: Evidence of OA, overgrowing toenails INVESTIGATIONS, reviewed in the clinical context: October 08: Potassium 4.2 creatinine 4.74 October 07: Potassium 5.3 bun 91 creatinine 8.88 Repeat labs-potassium 6.1 bun 95 creatinine 8.73 Serum osmolality 319 White count 9.8 hemoglobin 12.5 platelets 279 potassium 7 bun 94 creatinine 8.04 Blood glucose 71 Coronavirus [PCF]-not detected EKG tracing personally reviewed by me-normal sinus rhythm Computed tomography scan of the abdomen without contrast-nonspecific bilateral perinephric stranding Assessment and plan: -Acute C. diff colitis that was diagnosed 3 days before presentation.. Oral vancomycin -Acute severe kidney injury, from volume loss cannot rule out a chronic component. Did not respond to IV fluids. Started on hemodialysis. Making good urine. -Severe hyperkalemia from renal failure. Patient has received calcium gluconate, insulin, and sodium bicarbonate drip. Improved -Acute metabolic encephalopathy from renal slowly improving -Diabetes mellitus type 2. Uncontrolled with hypoglycemia from poor oral intake Hold off oral hypoglycemic. Follow Accu-Cheks. On D5.45-improve discontinued -Hypotension from volume loss IV fluids-improved -Essential hypertension currently blood pressure running low, hold off any antihypertensives -Metabolic acidosis from renal failure -Medical debility-slow to respond, PTOT -Anorexia from severe uremia-slowly improving Will have patient set up in a chair every shift. Encourage oral intake. Had hemodialysis today. Check labs in the morning. Doing better
[2020-10-09 20:11] LABS: Glucose,Whole Blood 158 mg/dL (75-99)
[2020-10-10] MEDS: ACETAMINOPHEN TAB 325 MG TAB PO PRN (01:35)
[2020-10-10 06:35] LABS: Glucose,Whole Blood 107 mg/dL (75-99)
[2020-10-10] MEDS: INSULIN ASPART (NovoLOG) 100 UNIT/ML VIAL SQ SCH ×3 (06:35→21:36)
[2020-10-10 08:38] LABS: Calcium 8.6 mg/dL (8.4-10.2); Phosphorus 3.3 mg/dL (2.5-4.5); Potassium 4.4 mmol/L (3.5-5.1)
[2020-10-10] MEDS: OXYBUTYNIN CHLORIDE 5 MG TAB PO SCH ×2 (08:55→17:51)
[2020-10-10] MEDS: CHOLECALCIFEROL 25 MCG (1000 IU) TABLET PO SCH (08:55)
[2020-10-10] MEDS: MULTIVITAMINS, THERA 1 EACH TAB PO SCH (08:55)
[2020-10-10] MEDS: ASPIRIN 81 MG PO SCH (08:55)
[2020-10-10] MEDS: VANCOMYCIN 125 MG CAPSULE PO SCH ×4 (08:55→21:36)
[2020-10-10] MEDS: FENOFIBRATE 54 MG TAB PO SCH (08:55)
[2020-10-10] MEDS: ENOXAPARIN 30 MG/0.3 ML SYRINGE SQ SCH (08:56)
[2020-10-10 11:54] LABS: Glucose,Whole Blood 130 mg/dL (75-99)
--- NOTE | 2020-10-10 12:32 | PN ---
PROGRESS NOTE The patient is seen for followup for acute kidney injury. He has had 2 treatments of dialysis. He is feeling much better and his creatinine is also improved. There might be recovery of his own kidney function as well. The patient has had good urine output. PHYSICAL EXAMINATION: On examination today, blood pressure is 117/69, heart rate 86 per minute. He is afebrile. EXAMINATION OF THE HEART: S1, S2. EXAMINATION OF THE LUNGS: Bilateral breath sounds are heard. Abdomen is soft, nontender. Examination of lower extremities shows no significant edema. Chronic skin changes are noted . 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 LABS: Labs show serum creatinine 2.6 mg/dL, sodium 131, potassium 4.4, phosphorus 3.3. ASSESSMENT: 1. Acute kidney injury most likely acute tubular necrosis with advanced renal failure requiring dialysis. The patient has had 2 treatments. His creatinine is down to 2.6 today and he has had good urine output. There may be recovery of his underlying renal function. We will repeat labs again tomorrow and I will continue to hold off on dialysis for now. We will also obtain his previous labs from [facility] where he was admitted recently prior to his admission here. 2. Metabolic acidosis, currently improved. 3. Hyperkalemia associated with acute kidney injury, now improved. 4. Mental status changes, currently improved with improving renal function and post dialysis. PLAN: Hold dialysis tomorrow. Obtain labs from recent hospitalization at [facility] and repeat labs in a.m. LOVE / RAE: [id number] /
[2020-10-10] MEDS ORDERED: LACTULOSE 20 GM/30 ML CUP PO ONE (13:00)
[2020-10-10 13:39] VITALS: BMI 28.0
[2020-10-10 16:29] LABS: Glucose,Whole Blood 105 mg/dL (75-99)
--- NOTE | 2020-10-10 19:46 | P.PN ---
Progress Note - Text Progress Note Date: 10/10/20 Chief Complaint: Tired History of presenting complaint: This is a 65-year-old patient, follows with Dr. cain from [place]. Patient is a poor historian and cannot really collect history. As per the nursing patient was found at home on the floor for about 2 days and was taken to [facility]. He was found to be an acute kidney injury and was then admitted to rehab. Currently at [facility]. Per the EMS report patient was being treated for C. diff. He started antibiotics 3 days prior. Patient had nausea vomiting for past 3 days not able to eat or drink much during that time. Patient feels rather tired and rundown. Electrolytes were totally off when he presented and also hypoglycemic. Patient states he been so weak that he has not been able to walk. Patient's sister is DP OA Admitted with severe renal failure, acute C. diff colitis, hypoglycemia. Started on IV fluids. Oral vancomycin. Right subclavicular hemodialysis catheter placed. Started on hemodialysis. Patient's mental status did improve Today-had some nausea. A bit tired. Fair urine output. Review of systems: Was done for constitutional, cardiovascular, GI, pulmonary. relevant finding as above Active Medications Acetaminophen (Acetaminophen Tab 325 Mg Tab) 650 mg PO Q6HR PRN PRN Reason: Mild Pain or Fever > 100.5 Last Admin: 10/10/20 01:35 Dose: 650 mg Documented by: Aspirin (Aspirin 81 Mg) 81 mg PO DAILY@0800 [facility] Last Admin: 10/10/20 08:55 Dose: 81 mg Documented by: Cholecalciferol (Cholecalciferol 25 Mcg (1000 Iu) Tablet) 125 mcg PO DAILY@0800 [facility] Last Admin: 10/10/20 08:55 Dose: 125 mcg Documented by: Enoxaparin Sodium (Enoxaparin 30 Mg/0.3 Ml Syringe) 30 mg SQ DAILY [facility] Last Admin: 10/10/20 08:56 Dose: 30 mg Documented by: Fenofibrate (Fenofibrate 54 Mg Tab) 54 mg PO DAILY@0800 [facility] Last Admin: 10/10/20 08:55 Dose: 54 mg Documented by: Insulin Aspart (Insulin Aspart (Novolog) 100 Unit/Ml Vial) 0 unit SQ [facility]; Protocol Last Admin: 10/10/20 17:48 Dose: Not Given Documented by: Multivitamins (Multivitamins, Thera 1 Each Tab) 1 each PO DAILY@0800 [facility] Last Admin: 10/10/20 08:55 Dose: 1 each Documented by: Naloxone HCl (Naloxone 0.4 Mg/Ml 1 Ml Vial) 0.2 mg IV Q2M PRN PRN Reason: Opioid Reversal Ondansetron HCl (Ondansetron 4 Mg/2 Ml Vial) 4 mg IVP Q8HR PRN PRN Reason: Nausea And Vomiting Oxybutynin Chloride (Oxybutynin Chloride 5 Mg Tab) 5 mg PO BID@0800,1600 [facility] Last Admin: 10/10/20 17:51 Dose: 5 mg Documented by: Prochlorperazine Maleate (Prochlorperazine Suppository 25 Mg Supp) 25 mg RECTAL Q12HR PRN PRN Reason: Nausea And Vomiting Vancomycin HCl (Vancomycin 125 Mg Capsule) 125 mg PO QID [facility] Last Admin: 10/10/20 17:52 Dose: 125 mg Documented by: Past medical history to include: Diabetes, hyperlipidemia, hypertension, spinal stenosis, vitamin D deficiency, incontinence, C. diff positive on October 03 Social history: Currently at [facility], no history of smoking or alcohol. Patient's sister is the DP OA Family history: Reviewed, noncontributory to presentation Physical examination: VITAL SIGNS: 96.8, 86, 16, 117/69, 96% room air GENERAL: Laying in bed, tired EYES: Pupils equal. Conjunctiva normal. HEENT: External appearance of nose and ears normal, oral cavity grossly normal. NECK: JVD not raised; masses not palpable. HEART: First and second heart sounds are normal; no edema. LUNGS: Respiratory rate normal; clear to auscultation. CHEST wall: Right infraclavicular dialysis catheter ABDOMEN: Soft, nontender, liver spleen not palpable, no masses palpable. PSYCH: Answering questions MUSCULOSKELETAL: Evidence of OA, overgrowing toenails INVESTIGATIONS, reviewed in the clinical context: October 10: Potassium 4.4 creatinine 2.63 bun 20 phosphorous 3.3 October 08: Potassium 4.2 creatinine 4.74 October 07: Potassium 5.3 bun 91 creatinine 8.88 Repeat labs-potassium 6.1 bun 95 creatinine 8.73 Serum osmolality 319 White count 9.8 hemoglobin 12.5 platelets 279 potassium 7 bun 94 creatinine 8.04 Blood glucose 71 Coronavirus [PCF]-not detected EKG tracing personally reviewed by me-normal sinus rhythm Computed tomography scan of the abdomen without contrast-nonspecific bilateral perinephric stranding Assessment and plan: -Acute C. diff colitis that was diagnosed 3 days before presentation.. Oral vancomycin-improved -Acute severe kidney injury, also ATN from volume loss cannot rule out a chronic component. Did not respond to IV fluids. Started on hemodialysis. Making good urine. Creatinine 2.63-hemodialysis currently held -Severe hyperkalemia from renal failure. Patient has received calcium gluconate, insulin, and sodium bicarbonate drip. Improved -Acute metabolic encephalopathy from renal slowly improving -Diabetes mellitus type 2. Uncontrolled with hypoglycemia from poor oral intake Hold off oral hypoglycemic. Follow Accu-Cheks. On D5.45-improve discontinued -Hypotension from volume loss IV fluids-improved -Essential hypertension currently blood pressure running low, hold off any antihypertensives -Metabolic acidosis from renal failure-improved -Medical debility-slow to respond, PTOT -Anorexia from severe uremia- improving Spoke to the nurse. Have the patient sit up in a chair. Follow with nephrology
[2020-10-10 20:06] LABS: Glucose,Whole Blood 177 mg/dL (75-99)
[2020-10-11 00:30] VITALS: RESP 16
[2020-10-11 06:04] LABS: Glucose,Whole Blood 116 mg/dL (75-99)
[2020-10-11] MEDS: INSULIN ASPART (NovoLOG) 100 UNIT/ML VIAL SQ SCH ×2 (06:07→11:58)
[2020-10-11] MEDS: MULTIVITAMINS, THERA 1 EACH TAB PO SCH (08:57)
[2020-10-11] MEDS: OXYBUTYNIN CHLORIDE 5 MG TAB PO SCH (08:57)
[2020-10-11] MEDS: CHOLECALCIFEROL 25 MCG (1000 IU) TABLET PO SCH (08:57)
[2020-10-11] MEDS: VANCOMYCIN 125 MG CAPSULE PO SCH ×2 (08:57→11:58)
[2020-10-11] MEDS: FENOFIBRATE 54 MG TAB PO SCH (08:57)
[2020-10-11] MEDS: ASPIRIN 81 MG PO SCH (08:57)
[2020-10-11] MEDS: ENOXAPARIN 30 MG/0.3 ML SYRINGE SQ SCH (08:58)
[2020-10-11 11:31] LABS: Glucose,Whole Blood 153 mg/dL (75-99)
[2020-10-11 11:47] LABS: Potassium 4.3 mmol/L (3.5-5.1)
[2020-10-11 11:48] LABS: Calcium 9.2 mg/dL (8.4-10.2)
[2020-10-11 14:32] VITALS: TEMP 98.1
[2020-10-11 14:36] VITALS: BP 139/69; PULSE 93
--- NOTE | 2020-10-11 14:44 | P.DS ---
Providers Date of admission: 10/06/20 06:40 Expected date of discharge: 10/11/20 Attending physician: Burton Lopez Consults: 10/06/20 06:38 Consult Physician Routine Consulting Provider: Savanna Hale Consult Reason/Comments: Acute kidney injury. Hyperkalemia. Do you want consulting provider notified?: Yes 10/06/20 19:33 Consult Physician Routine Consulting Provider: Dom Lo Consult Reason/Comments: HD Catheter Do you want consulting provider notified?: Yes Primary care physician: Rashi Allen MD Hospital Course: Chief Complaint: Tired History of presenting complaint: This is a 65-year-old patient, follows with Dr. allen from [place]. Patient is a poor historian and cannot really collect history. As per the nursing patient was found at home on the floor for about 2 days and was taken to [facility]. He was found to be an acute kidney injury and was then admitted to rehab. Currently at [facility]. Per the EMS report patient was being treated for C. diff. He started antibiotics 3 days prior. Patient had nausea vomiting for past 3 days not able to eat or drink much during that time. Patient feels rather tired and rundown. Electrolytes were totally off when he presented and also hypoglycemic. Patient states he been so weak that he has not been able to walk. Patient's sister is DP OA Admitted with severe renal failure, acute C. diff colitis, hypoglycemia. Started on IV fluids. Oral vancomycin. Right subclavicular hemodialysis catheter placed. Started on hemodialysis. Patient's mental status did improve. Dialysis admin health for last 3 days. Creatinine has been coming down. INR 2.36 Today-using a walker. Did take a few steps with therapy. Ventilator inpatient rehab. Spoke to Dr. Hale today. Continue to hold off dialysis for now. We will reassess in 3-4 days in the office. Patient completed a course of oral vancomycin. Discussion and discharge planning more than 35 minutes Consultation: Dr. Hale from nephrology Dr. Wyman from vascular surgery Past medical history to include: Diabetes, hyperlipidemia, hypertension, spinal stenosis, vitamin D deficiency, incontinence, C. diff positive on October 03 Social history: Currently at rehab [facility], no history of smoking or alcohol. Patient's sister is the DP OA Family history: Reviewed, noncontributory to presentation Physical examination: VITAL SIGNS: 98.1, 93, 16, 139 with 69, 96% room air GENERAL: Sitting up, comfortable EYES: Pupils equal. Conjunctiva normal. HEENT: External appearance of nose and ears normal, oral cavity grossly normal. NECK: JVD not raised; masses not palpable. HEART: First and second heart sounds are normal; no edema. LUNGS: Respiratory rate normal; clear to auscultation. CHEST wall: Right infraclavicular dialysis catheter ABDOMEN: Soft, nontender, liver spleen not palpable, no masses palpable. PSYCH: Answering questions MUSCULOSKELETAL: Evidence of OA, overgrowing toenails INVESTIGATIONS, reviewed in the clinical context: September 2014: Potassium 4.3 creatinine 2.36 BUN 23 Accu-Cheks 153 October 07: Potassium 5.3 bun 91 creatinine 8.88 Repeat labs-potassium 6.1 bun 95 creatinine 8.73 Serum osmolality 319 White count 9.8 hemoglobin 12.5 platelets 279 potassium 7 bun 94 creatinine 8.04 Blood glucose 71 Coronavirus [PCF]-not detected EKG tracing personally reviewed by me-normal sinus rhythm Computed tomography scan of the abdomen without contrast-nonspecific bilateral perinephric stranding Assessment and plan: -Acute C. diff colitis that was diagnosed 3 days before presentation.. Oral vancomycin-improved -Acute severe kidney injury, also ATN from volume loss cannot rule out a chronic component. Did not respond to IV fluids. Started on hemodialysis. Making good urine. Creatinine 2.36 currently held -Severe hyperkalemia from renal failure. Patient has received calcium gluconate, insulin, and sodium bicarbonate drip. Improved -Acute metabolic encephalopathy from renal slowly improving -Diabetes mellitus type 2. Uncontrolled with hypoglycemia from poor oral intake Hold off oral hypoglycemic. Follow Accu-Cheks. On D5.45-improve discontinued -Hypotension from volume loss IV fluids-improved -Essential hypertension currently blood pressure running low, hold off any antihypertensives -Metabolic acidosis from renal failure-improved -Medical debility-slow to respond, PTOT -Anorexia from severe uremia- improving Disposition: ECF/[facility]odge Plan - Discharge Summary New Discharge Prescriptions: No Action Magnesium Hydroxide [Milk of Magnesia] 2,400 mg PO Q24H PRN PRN Reason: Constipation Loperamide [Imodium] 2 mg PO Q6H PRN PRN Reason: Diarrhea Firvanq 25mg/Ml Solution 25 mg PO QID@00,06,12,18 Oxybutynin Chloride 5 mg PO BID@0800,1600 metFORMIN HCL [Glucophage] 1,000 mg PO BID@0800,1600 S.boulardii/B.coagulans/Fos [Diff-Stat 471 mg Capsule] 942 mg PO BID@0800,1600 Multivitamins, Thera [Multivitamin (formulary)] 1 tab PO DAILY@0800 Lisinopril [Prinivil] 10 mg PO DAILY@0800 Pioglitazone [Actos] 45 mg PO DAILY@0800 Fenofibrate 54 mg PO DAILY@0800 Cholecalciferol (Vitamin D3) [Vitamin D3 (5000 Iu)] 125 mcg PO DAILY@0800 Aspirin 81 mg PO DAILY@0800 Mag Hydrox/Aluminum Hyd/Simeth [Mylanta Maximum Strength Liq] 10 ml PO Q4H PRN PRN Reason: Gi Upset Discharge Medication List Aspirin 81 mg PO DAILY@0800 10/06/20 [History] Cholecalciferol (Vitamin D3) [Vitamin D3 (5000 Iu)] 125 mcg PO DAILY@0800 10/06/20 [History] Fenofibrate 54 mg PO DAILY@0800 10/06/20 [History] Firvanq 25mg/Ml Solution 25 mg PO QID@00,06,12,18 10/06/20 [History] Lisinopril [Prinivil] 10 mg PO DAILY@0800 10/06/20 [History] Loperamide [Imodium] 2 mg PO Q6H PRN 10/06/20 [History] Mag Hydrox/Aluminum Hyd/Simeth [Mylanta Maximum Strength Liq] 10 ml PO Q4H PRN 10/06/20 [History] Magnesium Hydroxide [Milk of Magnesia] 2,400 mg PO Q24H PRN 10/06/20 [History] Multivitamins, Thera [Multivitamin (formulary)] 1 tab PO DAILY@0800 10/06/20 [History] Oxybutynin Chloride 5 mg PO BID@0800,1600 10/06/20 [History] Pioglitazone [Actos] 45 mg PO DAILY@0800 10/06/20 [History] S.boulardii/B.coagulans/Fos [Diff-Stat 471 mg Capsule] 942 mg PO BID@0800,1600 10/06/20 [History] metFORMIN HCL [Glucophage] 1,000 mg PO BID@0800,1600 10/06/20 [History] Follow up Appointment(s)/Referral(s): Rashi Allen MD [Primary Care Provider] - 1-2 days Activity/Diet/Wound Care/Special Instructions[place] [facility] [place] - start at 0515 on first date of dialysis
--- NOTE | 2020-10-11 15:30 | PN ---
PROGRESS NOTE The patient is seen for followup for acute kidney injury. He has improved significantly after 2 treatments of hemodialysis. The patient's creatinine is actually lower today at 2.36 from 2.63 yesterday. He continues to have good urine output. At this time there are plans for discharge and patient will be seen as outpatient for followup and possible removal of PermCath down the road. PHYSICAL EXAMINATION: On examination today, patient is comfortable. Blood pressure is 119/67, heart rate 88 per minute. He is afebrile. EXAMINATION OF THE HEART: S1, S2. EXAMINATION OF THE LUNGS: Bilateral breath sounds are heard. Abdomen is soft, nontender. Examination of lower extremities shows no significant edema. 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 LABS: Labs show sodium 133, potassium 4.3, chloride 98, BUN 23, creatinine 2.36. ASSESSMENT: 1. Acute kidney injury most likely acute tubular necrosis, currently improved patient had 2 treatments of hemodialysis. His creatinine continues to decrease. He can be discharged with followup as outpatient in about one week's time with repeat labs to be done in 3-4 days. He will need to be followed up closely for removal of the PermCath as outpatient as he is not being set up for outpatient dialysis. 2. Mental status changes and encephalopathy associated with uremia, currently improved. 3. Hyperkalemia on admission, resolved. 4. Metabolic acidosis, currently improved. PLAN: Okay to discharge patient. Continue to hold off on dialysis and follow up as outpatient within 4-5 days for possible removal of PermCath down the road. Continue to avoid nephrotoxic agents. Avoid NSAIDs. MMODL / IJN: [id number] /
--- NOTE | 2020-10-11 15:52 | P.GSCN ---
History of Present Illness History of present illness: 65-year-old white male, and has acute kidney injury due to hypertension. He did and is 5.56 with you and is 88 pulse was consulted for placement of the dialysis catheter Neck examination neck is supple no bruit appreciated Chest is clear first and second sound normal abdomen soft nontender femoral 2+ bilateral Plan is placement of dialysis catheter risk and complication discussed Past Medical History Past Medical History: Diabetes Mellitus, Hyperlipidemia, Hypertension, Renal Disease Additional Past Medical History / Comment(s): Spinal stenosis, Vitamin D deficiency, , Incontinence, Obesity, History of Any Multi-Drug Resistant Organisms: C-DIFF Year Discovered:: MDRO Source:: Stool Past Surgical History: Orthopedic Surgery Past Anesthesia/Blood Transfusion Reactions: Unable to Obtain Past Psychological History: No Psychological Hx Reported Smoking Status: Never smoker Past Alcohol Use History: None Reported Past Drug Use History: None Reported - Past Family History Father Family Medical History: Unable to Obtain Mother Family Medical History: Unable to Obtain Medications and Allergies Home Medications Medication Instructions Recorded Confirmed Type Aspirin 81 mg PO DAILY@0800 10/06/20 10/06/20 History Cholecalciferol (Vitamin D3) 125 mcg PO DAILY@0800 10/06/20 10/06/20 History [Vitamin D3 (5000 Iu)] Fenofibrate 54 mg PO DAILY@0800 10/06/20 10/06/20 History Multivitamins, Thera [Multivitamin 1 tab PO DAILY@0800 10/06/20 10/06/20 History (formulary)] Oxybutynin Chloride 5 mg PO BID@0800,1600 10/06/20 10/06/20 History INSULIN ASPART (NovoLOG) [NovoLOG 0 unit SQ ACHS vial 10/11/20 Rx (formulary)] Vancomycin HCl [Vancomycin HCl 125 mg PO QID 8 Days dose 10/11/20 Rx Oral Soln] Allergies Allergy/AdvReac Type Severity Reaction Status Date / Time bee venom protein (honey bee) Allergy Swelling Verified 10/06/20 08:31 Surgical - Exam Vital Signs Temp Pulse Resp BP Pulse Ox 97.8 F 84 16 104/94 99 10/06/20 04:15 10/06/20 04:15 10/06/20 04:15 10/06/20 04:15 10/06/20 04:15 Results - Labs 10/06/20 04:58 10/11/20 11:11 Abnormal Lab Results - Last 24 Hours (Table) 10/10/20 10/10/20 10/11/20 Range/Units 16:27 20:04 06:01 Sodium (137-145) mmol/L BUN (9-20) mg/dL Creatinine (0.66-1.25) mg/dL Glucose (74-99) mg/dL POC Glucose (mg/dL) 105 H 177 H 116 H (75-99) mg/dL 10/11/20 10/11/20 Range/Units 11:11 11:29 Sodium 133 L (137-145) mmol/L BUN 23 H (9-20) mg/dL Creatinine 2.36 H (0.66-1.25) mg/dL Glucose 153 H (74-99) mg/dL POC Glucose (mg/dL) 153 H (75-99) mg/dL Diabetes panel 10/11/20 Range/Units 11:11 Sodium 133 L (137-145) mmol/L Potassium 4.3 (3.5-5.1) mmol/L Chloride 98 (98-107) mmol/L Carbon Dioxide 27 (22-30) mmol/L BUN 23 H (9-20) mg/dL Creatinine 2.36 H (0.66-1.25) mg/dL Glucose 153 H (74-99) mg/dL Calcium 9.2 (8.4-10.2) mg/dL Calcium panel 10/11/20 Range/Units 11:11 Calcium 9.2 (8.4-10.2) mg/dL Pituitary panel 10/11/20 Range/Units 11:11 Sodium 133 L (137-145) mmol/L Potassium 4.3 (3.5-5.1) mmol/L Chloride 98 (98-107) mmol/L Carbon Dioxide 27 (22-30) mmol/L BUN 23 H (9-20) mg/dL Creatinine 2.36 H (0.66-1.25) mg/dL Glucose 153 H (74-99) mg/dL Calcium 9.2 (8.4-10.2) mg/dL Adrenal panel 10/11/20 Range/Units 11:11 Sodium 133 L (137-145) mmol/L Potassium 4.3 (3.5-5.1) mmol/L Chloride 98 (98-107) mmol/L Carbon Dioxide 27 (22-30) mmol/L BUN 23 H (9-20) mg/dL Creatinine 2.36 H (0.66-1.25) mg/dL Glucose 153 H (74-99) mg/dL Calcium 9.2 (8.4-10.2) mg/dL
--- NOTE | 2020-10-11 15:53 | P.PCN ---
Description of Procedure: Preoperative diagnoses is a acute renal failure Postop same Procedure placement dialysis catheter right femoral approach patient brought to the [employer] right groin was prepped and draped applied in standard manner local anesthesia and IV sedation given ultrasound-guided micropuncture introducer right femoral vein micropuncture set was passed. After that we passed a regular guidewire without any resistance dilator was advanced. The guidewire. Then replaced a dialysis catheter on the top of the guidewire guidewire was removed flushed with heparin saline and Hep-Lock secured with 309 and pressure dressing applied patient tolerated the procedure well and transferred to the room in satisfactory condition
--- NOTE | 2020-10-11 15:55 | P.PCN ---
Description of Procedure: Procedure note groin was prepped and draped applied applied in standard manner stitches was removed from the catheter catheter was removed pressure was held pressure dressing applied patient tolerated the procedure well
[2020-10-11 16:41] LABS: Glucose,Whole Blood 136 mg/dL (75-99)
--- NOTE | 2020-10-12 06:40 | CONS ---
CONSULTATION This is a 65-year-old male patient who came with history of hypothermia, unresponsiveness. The patient developed acute on chronic renal failure with high BUN and creatinine. I was consulted for placement of the dialysis catheter. MEDICAL HISTORY: History of diabetes mellitus. PHYSICAL EXAMINATION: Patient was seen in her room. NECK: Supple. No bruit appreciated. CHEST: Clear. Few crackles at the lung bases. ABDOMEN: Soft, nontender. VASCULAR EXAMINATION: Both femorals are palpable. PLAN: Placement of the dialysis catheter. Risks and complications discussed. MMODL / IJN: [id number] /
== END 2020-10-11 17:00 | DRG 682 ==
LOC: EC 04:12 → 3SCARD 06:40
PROVIDERS: ADMIT Hospitalist; ATTEND Hospitalist
PROC: 02HV33Z Insertion of Infusion Device into Superior Vena Cava, Percutaneous Approach (ICD-10-PCS; principal; 2020-10-07 10:08)
PROC: 5A1D70Z Performance of Urinary Filtration, Intermittent, Less than 6 Hours Per Day (ICD-10-PCS; 2020-10-08)
DX: N17.0 Acute kidney failure with tubular necrosis (principal); G93.41 Metabolic encephalopathy; A04.72 Enterocolitis due to Clostridium difficile, not specified as recurrent; E87.2 Acidosis; E11.649 Type 2 diabetes mellitus with hypoglycemia without coma; I95.9 Hypotension, unspecified; F03.90 Unspecified dementia, unspecified severity, without behavioral disturbance, psychotic disturbance, mood disturbance, and anxiety; E11.22 Type 2 diabetes mellitus with diabetic chronic kidney disease; Z20.822 Contact with and (suspected) exposure to COVID-19; N18.9 Chronic kidney disease, unspecified; E87.5 Hyperkalemia; E78.5 Hyperlipidemia, unspecified; I12.9 Hypertensive chronic kidney disease with stage 1 through stage 4 chronic kidney disease, or unspecified chronic kidney disease; E66.9 Obesity, unspecified; E86.0 Dehydration; E55.9 Vitamin D deficiency, unspecified; M48.00 Spinal stenosis, site unspecified; R32 Unspecified urinary incontinence; M19.90 Unspecified osteoarthritis, unspecified site; R53.81 Other malaise; R63.0 Anorexia; Z71.3 Dietary counseling and surveillance; Z68.28 Body mass index [BMI] 28.0-28.9, adult; Z79.82 Long term (current) use of aspirin; Z79.899 Other long term (current) drug therapy; Z79.84 Long term (current) use of oral hypoglycemic drugs; Z91.030 Bee allergy status
CPT/HCPCS: 36415; 36558; 74176; 76937; 77001; 80048; 80053; 81001; 82150; 82570; 83036; 83605; 83690; 83930; 83935; 84100; 84132; 84133; 84300; 85025; 85610; 85730; 86704; 86706; 87340; 87635; 90935; 93005; 94640; 96361; 96365; 96375; 99291